=== PATIENT | female | born 1975 | race African-American/Black ===

== ENCOUNTER 2021-04-25 04:37 | Day surgery (SDC) | payer BC ==
[2021-04-22 10:44] VITALS: BMI 29.2
[2021-04-25] MEDS ORDERED: HYDROmorphone HCl 2 MG/ML VIAL ONE (07:11)
[2021-04-25] MEDS ORDERED: MIDAZOLAM HCL 2 MG/2 ML SINGLE DOSE VIAL ONE ×3 (07:11→07:16)
[2021-04-25] MEDS ORDERED: PROPOFOL 20 ML ONE (07:11)
[2021-04-25] MEDS ORDERED: ROCURONIUM BROMIDE 50 MG/5 ML SYRINGE ONE ×2 (07:11→08:34)
[2021-04-25] MEDS ORDERED: DEXAMETHASONE SOD PHOSPHATE 4 MG/1 ML VIAL ONE (07:13)
[2021-04-25] MEDS ORDERED: LIDOCAINE HCL/PF 2% SDV 5ML VIAL ONE (07:13)
[2021-04-25] MEDS ORDERED: ceFAZolin SODIUM 1 GM VIAL ONE (07:13)
[2021-04-25] MEDS ORDERED: BUPIVACAINE LIPOSOME/PF (EXPAREL) 266 MG/20 ML VIAL ONE (07:15)
[2021-04-25] MEDS ORDERED: BUPIVACAINE HCL 100 ML ONE (07:16)
[2021-04-25] MEDS ORDERED: PHENAZOPYRIDINE HCL 100 MG TABLET (FP) PO ONE (07:31)
[2021-04-25] MEDS ORDERED: CEFAZOLIN 2 GM in DEXTROSE 5%-WATER - 100 ML IVPB ONE (07:31)
[2021-04-25] MEDS ORDERED: ceFAZolin SODIUM 1 GM VIAL IVPB ONE (08:08)
[2021-04-25] MEDS ORDERED: ACETAMINOPHEN 1000 MG/100 ML VIAL (NON FORMULARY) IVPB ONE (08:39)
[2021-04-25] MEDS ORDERED: ONDANSETRON 4 MG/2 ML VIAL IVPUSH PRN ×2 (08:39→09:52)
[2021-04-25] MEDS ORDERED: oxyCODONE HCL 5 MG TABLET PO PRN (08:39)
[2021-04-25] MEDS ORDERED: LACTATED RINGERS SOLUTION 1,000 ML IV SCH (08:45)
[2021-04-25] MEDS ORDERED: NEOSTIGMINE METHYLSULFATE 0.5 MG/ML - 10 ML MDV ONE (09:28)
[2021-04-25] MEDS ORDERED: GLYCOPYRROLATE 0.2 MG/1 ML VIAL ONE (09:29)
[2021-04-25] MEDS ORDERED: DOCUSATE SODIUM 100 MG CAPSULE (FP) PO PRN (09:52)
[2021-04-25] MEDS ORDERED: IBUPROFEN 800 MG/8 ML IJ IVPB PRN (09:52)
[2021-04-25] MEDS ORDERED: BISACODYL 5 MG TABLET.DR (FP) PO PRN (09:52)
[2021-04-25] MEDS ORDERED: LISINOPRIL 20 MG TABLET PO SCH (10:00)
[2021-04-25] MEDS ORDERED: HYDROCHLOROTHIAZIDE 25 MG TABLET (FP) PO SCH (10:00)
[2021-04-25] MEDS ORDERED: ACETAMINOPHEN INJECTION 100 ML IVPB ONE (10:35)
[2021-04-25] MEDS: ACETAMINOPHEN 325 MG TABLET (FP) PO SCH ×2 (15:50→23:02)
[2021-04-25] MEDS: CEFAZOLIN 1 GM/D5W 1 GM/50 ML BAG IVPB SCH ×2 (16:12→23:28)
[2021-04-25] MEDS: oxyCODONE HCL 5 MG TABLET PO PRN ×2 (18:07→23:27)
[2021-04-25 20:16] LABS: HEMATOCRIT 42.4 % (32.4-45.2); HEMOGLOBIN 13.9 GM/dL (10.7-15.3); MCH 29.5 pg (25.7-33.7); MCHC 32.8 g/dl (32.0-36.0); MEAN CELL VOLUME 89.8 fl (80-96); MEAN PLT VOLUME 9.6 fl (7.5-11.1); PLATELET COUNT 194 10^3/uL (134-434); RBC 4.72 M/mm3 (3.60-5.2); RDW 13.5 % (11.6-15.6); WHITE BLOOD COUNT 12.9 K/mm3 (4.0-10.0)
[2021-04-25 20:50] LABS: CALCIUM 8.5 mg/dL (8.5-10.1)
[2021-04-25 20:51] LABS: BLOOD UREA NITROGEN 9.6 mg/dL (7-18)
[2021-04-25 20:54] LABS: CREATININE 0.9 mg/dL (0.55-1.3)
[2021-04-25] MEDS: SIMETHICONE 80 MG TAB.CHEW (FP) PO PRN (23:01)
[2021-04-26] MEDS: ACETAMINOPHEN 325 MG TABLET (FP) PO SCH ×2 (05:00→10:06)
[2021-04-26] MEDS: oxyCODONE HCL 5 MG TABLET PO PRN (06:00)
[2021-04-26] MEDS: SIMETHICONE 80 MG TAB.CHEW (FP) PO PRN (06:00)
[2021-04-26] MEDS: CEFAZOLIN 1 GM/D5W 1 GM/50 ML BAG IVPB SCH (07:58)
[2021-04-26 08:48] LABS: CALCIUM 8.4 mg/dL (8.5-10.1)
[2021-04-26 08:49] LABS: BLOOD UREA NITROGEN 9.9 mg/dL (7-18)
[2021-04-26 08:52] LABS: CREATININE 0.9 mg/dL (0.55-1.3); HEMATOCRIT 41.4 % (32.4-45.2); HEMOGLOBIN 13.7 GM/dL (10.7-15.3); MCH 29.9 pg (25.7-33.7); MCHC 33.1 g/dl (32.0-36.0); MEAN CELL VOLUME 90.2 fl (80-96); MEAN PLT VOLUME 9.5 fl (7.5-11.1); PLATELET COUNT 173 10^3/uL (134-434); RBC 4.59 M/mm3 (3.60-5.2); RDW 13.1 % (11.6-15.6); WHITE BLOOD COUNT 10.6 K/mm3 (4.0-10.0)
[2021-04-26 09:35] VITALS: BP 138/80; PULSE 66; TEMP 98.5
[2021-04-26] MEDS ORDERED: HYDROCHLOROTHIAZIDE 25 MG TABLET (FP) PO SCH (10:00)
[2021-04-26] MEDS ORDERED: LISINOPRIL 20 MG TABLET PO SCH (10:00)
[2021-04-26] MEDS ORDERED: ENOXAPARIN NA (PORCINE) 40 MG/0.4 ML DISP.SYRIN SQ SCH (10:00)
== END 2021-04-26 11:10 | disposition home or self-care (01) ==
LOC: JASUSAT 04:37 → J3W 12:18 → JASUSAT 04-26 11:10
PROVIDERS: ATTEND Obstetrics & Gynecology
PROC: 0UT7FZZ Resection of Bilateral Fallopian Tubes, Via Natural or Artificial Opening With Percutaneous Endoscopic Assistance (ICD-10-PCS; 2021-04-25)
PROC: 8E0W4CZ Robotic Assisted Procedure of Trunk Region, Percutaneous Endoscopic Approach (ICD-10-PCS; 2021-04-25)
PROC: 0UB04ZZ Excision of Right Ovary, Percutaneous Endoscopic Approach (ICD-10-PCS; principal; 2021-04-25 07:30)
PROC: 0UT9FZZ Resection of Uterus, Via Natural or Artificial Opening With Percutaneous Endoscopic Assistance (ICD-10-PCS; 2021-04-25 07:30)
DX: D25.9 Leiomyoma of uterus, unspecified (principal); N88.8 Other specified noninflammatory disorders of cervix uteri; N72 Inflammatory disease of cervix uteri; N92.0 Excessive and frequent menstruation with regular cycle; N94.6 Dysmenorrhea, unspecified; N83.201 Unspecified ovarian cyst, right side
CPT/HCPCS: 58554; 58662; S2900; 36415; 80048; 81025; 85027; 86850; 86900; 86901; 88302-TC; 88305-TC; 88307-TC; 94010; 94760; J0131

== ENCOUNTER 2023-12-09 22:05 | Emergency (ER) | payer BC, OTHER ==
[2023-12-09 22:13] VITALS: BP 127/97; PULSE 18; RESP 16; TEMP 98; BMI 27.8
[2023-12-09] MEDS ORDERED: NAPROXEN 500 MG TABLET PO ONE (22:15)
[2023-12-09] MEDS ORDERED: NAPROXEN 500 MG TABLET ONE (22:17)
== END 2023-12-09 23:37 | disposition home or self-care (01) ==
LOC: FER 22:05
PROC: 2W3RX1Z Immobilization of Left Lower Leg using Splint (ICD-10-PCS; principal; 2023-12-09)
DX: S99.912A Unspecified injury of left ankle, initial encounter (principal); X50.1XXA Overexertion from prolonged static or awkward postures, initial encounter
CPT/HCPCS: 73610-TC-RT-FY; 73630-TC-RT-FY; 99283-25

== ENCOUNTER 2024-08-27 03:23 | Emergency (ER) | payer BC, OTHER ==
[2024-08-27] MEDS ORDERED: ACETAMINOPHEN 500 MG TABLET (FP) ONE (03:40)
[2024-08-27 03:50] VITALS: BP 137/103; PULSE 67; RESP 17; TEMP 98.4; BMI 28.6
[2024-08-27] MEDS: ACETAMINOPHEN 500 MG TABLET (FP) PO ONE (03:53)
[2024-08-27] MEDS ORDERED: METOCLOPRAMIDE HCL 10 MG TABLET (FP) PO ONE (04:37)
[2024-08-27] MEDS ORDERED: KETOROLAC TROMETHAMINE 60 MG/2 ML VIAL ONE (04:37)
[2024-08-27] MEDS: METOCLOPRAMIDE HCL 10 MG TABLET (FP) PO ONE (04:50)
[2024-08-27] MEDS: KETOROLAC TROMETHAMINE 60 MG/2 ML VIAL IM ONE (04:50)
== END 2024-08-27 05:34 | disposition home or self-care (01) ==
LOC: FER 03:23
PROC: 3E0133Z Introduction of Anti-inflammatory into Subcutaneous Tissue, Percutaneous Approach (ICD-10-PCS; principal; 2024-08-27)
DX: G43.909 Migraine, unspecified, not intractable, without status migrainosus (principal)
CPT/HCPCS: 70450-TC; 99284-25